=== PATIENT | male | born 1940 | race Caucasian/White ===

== ENCOUNTER 2018-07-21 20:23 | Emergency (ER) | payer MEDICARE ==
[2018-07-21] MEDS ORDERED: Sulfameth/Trimethoprim DS 800-160mg TAB ONE (20:55)
== END 2018-07-21 21:04 | disposition home or self-care (01) ==
LOC: BURERS 20:23
DX: H66.42 Suppurative otitis media, unspecified, left ear (principal); E78.5 Hyperlipidemia, unspecified; I10 Essential (primary) hypertension; Z79.899 Other long term (current) drug therapy
CPT/HCPCS: 10060; 87070; 87077; 87186; 87205

== ENCOUNTER 2020-10-18 13:58 | Emergency (ER) | payer MEDICARE, OTHER | END 2020-10-18 14:29 | disposition home or self-care (01) | LOC: BURERS 13:58 | DX: M76.62 Achilles tendinitis, left leg (principal); E78.5 Hyperlipidemia, unspecified; I10 Essential (primary) hypertension; Z79.899 Other long term (current) drug therapy | CPT/HCPCS: 99283 ==